=== PATIENT | male | born 1990 | race Caucasian/White ===

== ENCOUNTER 2020-07-02 10:45 | Emergency (ER) | payer BC ==
--- NOTE | 2020-07-02 13:16 | RAD ---
XR Foot Rt 3 View STANDARD HISTORY: Fourth toe swelling. COMPARISON: None. FINDINGS: There is no evidence of air within the soft tissue. I do not see any plain film evidence fo r osteomyelitis. No evidence for fracture. IMPRESSION: No acute findings.
== END 2020-07-02 13:38 | disposition home or self-care (01) ==
LOC: ERS 10:45
DX: M79.675 Pain in left toe(s) (principal); E10.9 Type 1 diabetes mellitus without complications